=== PATIENT | male | born 1995 ===

== ENCOUNTER 2017-01-08 13:11 | Emergency (ER) | payer BC ==
[2017-01-08] MEDS ORDERED: Ibuprofen TAB* 600 MG PO ONE (13:26)
[2017-01-08 13:33] VITALS: BP 130/94
--- NOTE | 2017-01-08 13:58 | RAD ---
HISTORY: Left knee injury COMPARISONS: None VIEWS: 2, Frontal and lateral views of the left knee FINDINGS: BONE DENSITY: Normal. BONES: There is no displaced fracture. JOINTS: There is no arthropathy. There is no suprapatellar joint effusion or lipohemarthrosis. ALIGNMENT: There is no dislocation. SOFT TISSUES: Unremarkable. OTHER FINDINGS: None. IMPRESSION: NO ACUTE OSSEOUS INJURY. IF SYMPTOMS PERSIST, RECOMMEND REPEAT IMAGING.
--- NOTE | 2017-01-08 14:05 | UC ---
Lower Extremity/Ankle HPI - HPI Summary HPI Summary: He went running for a few miles at the gym yesterday and then again later in the night. Today he awoke with aching in the left knee. He point to the lateral lower thigh. - History of Current Complaint Chief Complaint: UCLowerExtremity Stated Complaint: LEFT KNEE INJURY Time Seen by Provider: 01/08/17 13:53 Hx Obtained From: Patient Onset/Duration: Gradual Onset Severity Initially: Moderate Severity Currently: Moderate Aggravating Factor(s): Standing, Ambulation Alleviating Factor(s): Rest, Elevation Able to Bear Weight: Yes - Allergies/Home Medications Allergies/Adverse Reactions: Allergies Allergy/AdvReac Type Severity Reaction Status Date / Time anesthesia Allergy Hives Uncoded 01/08/17 13:34 Home Medications: Home Medications Low Blood Sugar Med 1 tab PO AC 01/08/17 [History Confirmed 01/08/17] PMH/Surg Hx/FS Hx/Imm Hx Previously Healthy: No - Surgical History Surgical History: Yes Surgery Procedure, Year, and Place: right knee ligaments - Family History Known Family History: Positive: Other - no related family history. - Social History Occupation: Student Alcohol Use: Occasionally Substance Use Type: None Smoking Status (MU): Never Smoked Tobacco Review of Systems Musculoskeletal: Arthralgia All Other Systems Reviewed And Are Negative: Yes Physical Exam Triage Information Reviewed: Yes Appearance: Well-Appearing, No Pain Distress, Well-Nourished Vital Signs: Initial Vital Signs Temp 99.6 F 01/08/17 13:21 Pulse 76 01/08/17 13:21 Resp 16 01/08/17 13:21 BP 130/94 01/08/17 13:21 Vital Signs Reviewed: Yes Eye Exam: Normal Eyes: Positive: Conjunctiva Clear ENT: Positive: Normal ENT inspection Neck exam: Normal Neck: Positive: Supple, Nontender, No Lymphadenopathy Respiratory Exam: Normal Respiratory: Positive: Normal breath sounds, No respiratory distress, No accessory muscle use Cardiovascular: Positive: RRR, No Murmur, Pulses Normal, Brisk Capillary Refill Abdomen Description: Positive: Nontender, Soft Musculoskeletal Exam: Other - Full rom of the knee. no effusion. there isno joint line tenderness. There is tenderness over the lateral distal femur. Cross over test pos for IT band. Neurological Exam: Normal Neurological: Positive: Alert, Muscle Tone Normal Psychological Exam: Normal Skin: Negative: rashes Lower Extremity Course/Dx - Differential Dx/Diagnosis Provider Diagnoses: right IT band syndrome. Discharge - Discharge Plan Condition: Good Disposition: HOME Patient Education Materials: Iliotibial Band Syndrome (ED) Additional Instructions: return to student health if not better in one week. Ice five times a day and no running for one week.
== END 2017-01-08 14:10 | disposition home or self-care (01) ==
LOC: UCCORT 13:11
DX: M76.31 Iliotibial band syndrome, right leg (principal)
CPT/HCPCS: 99202; A9270-GY; G0463